=== PATIENT | female | born 1995 ===

== ENCOUNTER 2021-07-01 07:12 | Emergency (ER) | payer SELFPAY ==
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
== END 2021-07-01 10:13 | disposition home or self-care (01) ==
LOC: MW.ED 07:12
DX: S09.90XA Unspecified injury of head, initial encounter (principal); Z88.5 Allergy status to narcotic agent; Z91.018 Allergy to other foods; Y04.2XXA Assault by strike against or bumped into by another person, initial encounter
CPT/HCPCS: 70450; 70450-26; 72125; 72125-26; 81025; 99284-25